=== PATIENT | female | born 1950 ===

== ENCOUNTER → 2020-03-25 13:11 | Outpatient (CLI) | payer MEDICARE, OTHER, SELFPAY ==
--- NOTE | ~2020-03-25 | MM_ITS ---
EXAMINATION: MM screening [facility] BI w zohreh HISTORY: Screening TECHNIQUE: Craniocaudal and mediolateral oblique 3-D tomosynthesis images were obtained and synthetic 2-D images were generated. CAD analysis was submitted and interpreted. COMPARISON: Comparison to multiple prior studies sequentially, with oldest reviewed study dated 05/24. BREAST PARENCHYMAL COMPOSITION: Breast composition is almost entirely fatty FINDINGS: There is no evidence of suspicious mass, calcification, or architectural distortion to sugg est malignancy in either breast. There has been no suspicious interval change. IMPRESSION: 1. No mammographic evidence of malignancy. 2. Recommend routine screening mammography in one year. BI-RADS CATEGORY 1 - NEGATIVE Reviewed, dictated and finalized at location A.
--- NOTE | ~2020-03-25 | DEXA_ITS ---
Bone Density Report Name: Sheba Adames Age: 69 Sex: Female Ethnicity: Date of : 1950 Indication: osteopenia; monitoring treatment; hysterectomy; postmenopausal Referring Provider: CLOTILDE CHOPRA Study: Bone densitometry was performed. Exam Date: March 25, 2020 Accession number: [id number] Bone Density: Region BMD T-score Z-score Classification AP Spine (L1, L4) 0.900 -1.2 0.9 Osteopenia Femoral Neck (Left) 0.644 -1.8 -0.2 Osteopenia Total Hip (Left) 0.871 -0.6 0.8 Normal Femoral Neck (Right) 0.635 -1.9 -0.2 Osteopenia Total Hip (Right) 0.745 -1.6 -0.1 Osteopenia Total Hip Mean 0.808 -1.1 0.4 Osteopenia World Health Organization criteria for BMD impression classify patients as: Normal (T-score at or above -1.0), Osteopenia (T-score between -1.0 and -2.5), or Osteoporosis (T-score at or below -2.5). 10-year Fracture Risk: FRAX not reported because: Treated for osteoporosis Previous Exams: Region Exam Age BMD T-score BMD Change BMD Change Date g/cm2 vs Baseline vs Previous AP Spine(L1, L4) 03/25/2020 69 0.900 -1.2 0.031 -0.039* 09/08/2017 67 0.939 -0.9 0.070 0.018 06/14/2012 61 0.922 -1.0 0.052 0.052 06/16/2010 59 0.869 -1.5 Total Hip(Left) 03/25/2020 69 0.871 -0.6 0.076 0.026 09/08/2017 67 0.845 -0.8 0.050 -0.010 06/14/2012 61 0.856 -0.7 0.060 0.060 06/16/2010 59 0.795 -1.2 Total Hip(Right) 03/25/2020 69 0.745 -1.6 -0.006 -0.012 09/08/2017 67 0.757 -1.5 0.005 -0.041* 06/14/2012 61 0.798 -1.2 0.047 0.047 06/16/2010 59 0.751 -1.6 *Denotes significance at 95% confidence level, LSC for AP Spine = 0.022 g/cm2, LSC for Total Hip = 0.027 g/cm2 Clinical Information Provided by Patient: Is being treated for osteoporosis Has used the following medications: HRT (i.e. estrogen/hormone therapy), Vitamin D, synthroid Has the following medical conditions: Hysterectomy Patient maximum height was 59.25 Menopause Age: 49 Drinks caffeinated beverages Onset of menses at age 13 Number of children 1 Impression: The patient has low bone mass, based on the Right Femoral Neck T-score. The BMD for the AP Spine(L1, L4) decreased, changing by -0.039 since the last DXA exam. Discussion: SIGNIFICANT BONE LOSS OBSERVED. Adherenc
== END ==
PROVIDERS: PCP Internal Medicine; Visit Provider Obstetrics & Gynecology Gynecology
DX: Z12.31 Encounter for screening mammogram for malignant neoplasm of breast (principal); M85.88 Other specified disorders of bone density and structure, other site; Z78.0 Asymptomatic menopausal state
CPT/HCPCS: 77063; 77067; 77080

== ENCOUNTER → 2021-04-22 12:46 | Outpatient (CLI) | payer MEDICARE, OTHER, SELFPAY ==
--- NOTE | ~2021-04-22 | MM_ITS ---
EXAMINATION: MM screening coy BI w zohreh HISTORY: Screening TECHNIQUE: Craniocaudal and mediolateral oblique 3-D tomosynthesis images were obtained and synthetic 2-D images were generated. CAD analysis was submitted and interpreted. COMPARISON: 03/25/2020 BREAST PARENCHYMAL COMPOSITION: The breasts are almost entirely fatty. FINDINGS: There is no evidence of suspicious mass, calcification, or architectural distortion to sugg est malignancy in either breast. There has been no suspicious interval change. IMPRESSION: 1. No mammographic evidence of malignancy. 2. Recommend routine screening mammography in one year. BI-RADS Category 1: Negative Reviewed, dictated and finalized at location A.
== END ==
PROVIDERS: PCP Internal Medicine; Visit Provider Obstetrics & Gynecology Gynecology
DX: Z12.31 Encounter for screening mammogram for malignant neoplasm of breast (principal)
CPT/HCPCS: 77063; 77067

== ENCOUNTER → 2022-04-23 10:05 | Outpatient (CLI) | payer MEDICARE, OTHER, SELFPAY ==
--- NOTE | ~2022-04-23 | MM_ITS ---
EXAMINATION: MM screening coy BI w zohreh HISTORY: Screening mammogram TECHNIQUE: Craniocaudal and mediolateral oblique 3-D tomosynthesis images were obtained and synthetic 2-D images were generated. CAD analysis was submitted and interpreted. COMPARISON: 04/22/2021, 03/25/2020 BREAST PARENCHYMAL COMPOSITION: The breasts are almost entirely fatty. FINDINGS: There is no suspicious mass, calcification, or architectural distortion to suggest malignan cy in either breast. There has been no suspicious interval change. IMPRESSION: 1. No mammographic evidence of malignancy. 2. Recommend routine screening mammography in one year. BI-RADS Category 1: Negative Reviewed, dictated and finalized at location A.
--- NOTE | ~2022-04-23 | DEXA_ITS ---
Bone Density Report Name: EVELIA KIM Age: 71 Sex: Female Ethnicity: Date of : 1950 Indication: osteopenia; monitoring treatment; parental hip fracture; height loss; hysterectomy; postmenopausal Referring Provider: CLOTILDE CHOPRA Study: Bone densitometry was performed. Exam Date: April 23, 2022 Accession number: [id number] Bone Density: Region BMD T-score Z-score Classification AP Spine (L1, L4) 0.937 -0.9 1.4 Normal Femoral Neck (Left) 0.632 -2.0 -0.1 Osteopenia Total Hip (Left) 0.854 -0.7 0.8 Normal Femoral Neck (Right) 0.604 -2.2 -0.4 Osteopenia Total Hip (Right) 0.770 -1.4 0.2 Osteopenia Total Hip Mean 0.812 -1.1 0.5 Osteopenia World Health Organization criteria for BMD impression classify patients as: Normal (T-score at or above -1.0), Osteopenia (T-score between -1.0 and -2.5), or Osteoporosis (T-score at or below -2.5). 10-year Fracture Risk: FRAX not reported because: Treated for osteoporosis Previous Exams: Region Exam Age BMD T-score BMD Change BMD Change Date g/cm2 vs Baseline vs Previous AP Spine(L1, L4) 04/23/2022 71 0.937 -0.9 0.068* 0.038 03/25/2020 69 0.900 -1.2 0.031 -0.039* 09/08/2017 67 0.939 -0.9 0.070 0.018 06/14/2012 61 0.922 -1.0 0.052 0.052 06/16/2010 59 0.869 -1.5 Total Hip(Left) 04/23/2022 71 0.854 -0.7 0.059* -0.017 03/25/2020 69 0.871 -0.6 0.076 0.026 09/08/2017 67 0.845 -0.8 0.050 -0.010 06/14/2012 61 0.856 -0.7 0.060 0.060 06/16/2010 59 0.795 -1.2 Total Hip(Right) 04/23/2022 71 0.770 -1.4 0.019 0.025 03/25/2020 69 0.745 -1.6 -0.006 -0.012 09/08/2017 67 0.757 -1.5 0.005 -0.041* 06/14/2012 61 0.798 -1.2 0.047 0.047 06/16/2010 59 0.751 -1.6 *Denotes significance at 95% confidence level, LSC for AP Spine = 0.022 g/cm2, LSC for Total Hip = 0.027 g/cm2 Clinical Information Provided by Patient: Parent has had a hip fracture Is being treated for osteoporosis Has used the following medications: Evista (i.e. raloxifene), Vitamin D, Calcium, LEVOTHYROXINE, MTV Has the following medical conditions: Hysterectomy, HX OF UTERINE CA -2012, HX OF THYROID CA -1999 WITH RADIOACTIVE IODINE TREATMENT Patient maximum height was 59.75 Menopause Age: 49 Drinks caffeinated beverages
== END ==
PROVIDERS: PCP Internal Medicine; Visit Provider Obstetrics & Gynecology Gynecology
DX: Z12.31 Encounter for screening mammogram for malignant neoplasm of breast (principal); Z78.0 Asymptomatic menopausal state; M85.852 Other specified disorders of bone density and structure, left thigh; M85.851 Other specified disorders of bone density and structure, right thigh
CPT/HCPCS: 77063; 77067; 77080

== ENCOUNTER 2022-07-10 11:44 | Emergency (ER) | payer MEDICARE, OTHER, SELFPAY ==
--- NOTE | ~2022-07-10 | XR_ITS ---
XR knee RT min 4V DATE: 07/10/2022 12:14 INDICATION: Fall 2 weeks ago. Medial knee pain. TECHNIQUE: Crosstable lateral, AP and bilateral oblique views COMPARISON: None FINDINGS: There is osteopenia. No fracture or dislocation, periosteal reaction or bone destruction. No joint effusion. Joint spaces are well preserved. Enthesopathy is superior pole patellar and quadriceps tendon insertion. IMPRESSION: Osteopenia; no other significant abnormality Reviewed, dictated and finalized at location B. CCO ROLLER
[2022-07-10 12:00] VITALS: BP 152/77; PULSE 90; RESP 20; TEMP 36.4; O2SAT 96
--- NOTE | 2022-07-10 12:44 | ED.LOWEXIN ---
HPI - Extremity Injury (Lower) General Chief Complaint: Extremity Injury, Lower Stated Complaint: Rt Knee Pain due to Fall Time Seen by Provider: 07/10/22 12:44 Source: patient Mode of arrival: ambulatory Limitations: no limitations History of Present Illness HPI Narrative: 71 y/o female presents with complaint of right knee pain for 2 weeks after injury. She states she fell while at the [facility], slipping on the wet floor. She states her left leg went out in front of her, the right leg extended behind her and the medial aspect of the right knee struck the floor. She denies bruising or swelling. She denies numbness, tingling, weakness in the extremity. She has been icing, heating, and taking ibuprofen for symptoms. She states she expected the pain to be gone by now and would like evaluation. Related Data Allergies Allergy/AdvReac Type Severity Reaction Status Date / Time No Known Allergies Allergy Unverified 08/24/17 14:44 Review of Systems Review of Systems: CONSTITUTIONAL: Denies body aches, fever, chills CARDIOVASCULAR: Denies chest pain, palpitations, or edema. RESPIRATORY: Denies cough or dyspnea. GASTROINTESTINAL: Denies abdominal pain, nausea, vomiting, or diarrhea. SKIN: Denies rash, itching, or wounds. MUSCULOSKELETAL: per HPI NEUROLOGIC: Denies headache, numbness, tingling, or weakness. All systems reviewed & are unremarkable except as noted in HPI and below PMFSH Comments At time of signature, I have reviewed and agree with nursing past medical, surgical, social and family history unless otherwise noted. Please see nursing chart for further information. There is no relevant family history pertinent to the presenting complaint Exam Narrative: GENERAL: Well-appearing, well-nourished, and in no acute distress. HEAD: Normocephalic, atraumatic. EYES: PERRLA, conjunctivae clear NECK: Supple. CHEST: Speaks in full sentences. No respiratory distress. HEART: Regular rate and rhythm. Normal and equal peripheral pulses. EXTREMITIES: Right medial knee tender with palpation, no swelling, redness, bruising. Full ROM to knee. Ambulating with steady gait. RLE has normal strength and sensation. No open wounds or obvious deformity; pulse palpable and equal bilaterally, skin warm, dry, pink. Capillary refill less than 3 seconds. SKIN: Warm, dry, no rash. Course Course Emergency Course: Patient is aware of diagnosis, understands and agrees to treatment plan. Anticipatory guidance given. Patient agrees to follow-up as directed and is aware of reasons to seek care at the emergency department. Portions of this record may have been created with voice recognition software Level of Care: Express Care Visit Vital Signs Vital signs: Vital Signs Temperature 97.5 F L 07/10/22 12:00 Pulse Rate 90 07/10/22 12:00 Respiratory Rate 20 07/10/22 12:00 Blood Pressure 152/77 H 07/10/22 12:00 Pulse Oximetry 96 07/10/22 12:00 Oxygen Delivery Room Air 07/10/22 12:00 Temperature 97.5 F L 07/10/22 12:00 Pulse Rate 90 07/10/22 12:00 Respiratory Rate 20 07/10/22 12:00 Blood Pressure 152/77 H 07/10/22 12:00 Pulse Oximetry 96 07/10/22 12:00 Oxygen Delivery Room Air 07/10/22 12:00 Reviewed MDM - Extremity Injury (Lower) MDM Narrative Medical decision making narrative: Results of x-ray reviewed with patient. Advised supportive measures and signs/symptoms to go to the ER. Pt is appropriate for outpt treatment and f/u. Differential Diagnosis Differential diagnosis: Likely acute internal derangement of knee and other (tendon/ligament injury, bursitis, arthritis, contusion, strain) Discharge Plan Discharge Clinical Impression: Acute pain of right knee Patient Disposition: Home, Self-Care Condition: Stable Instructions: Knee Pain (ED) Additional Instructions: Rest. Avoid running or excessive walking or anything that worsens the symptoms Tylenol 1000mg every 8 hours as needed,
== END 2022-07-10 13:00 | disposition home or self-care (01) ==
PROVIDERS: Emergency Provider Nurse Practitioner Family; PCP Internal Medicine
DX: M25.561 Pain in right knee (principal); W01.0XXA Fall on same level from slipping, tripping and stumbling without subsequent striking against object, initial encounter
CPT/HCPCS: 73564; 99213; G0463

== ENCOUNTER → 2023-04-29 10:16 | Outpatient (CLI) | payer MEDICARE, OTHER, SELFPAY ==
--- NOTE | ~2023-04-29 | MM_ITS ---
EXAMINATION: MM screening [facility] BI w zohreh HISTORY: Screening mammogram TECHNIQUE: Craniocaudal and mediolateral oblique 3-D tomosynthesis images were obtained and synthetic 2-D images were generated. CAD analysis was submitted and interpreted. COMPARISON: 04/23/2022, , 03/25/2020 BREAST PARENCHYMAL COMPOSITION: The breasts are almost entirely fatty. FINDINGS: There is no evidence of suspicious mass, calcification, or architectural distortion to sugg est malignancy in either breast. There has been no suspicious interval change. IMPRESSION: 1. No mammographic evidence of malignancy. 2. Recommend routine screening mammography in one year. BI-RADS Category 1: Negative Reviewed, dictated and finalized at location A.
== END ==
PROVIDERS: PCP Obstetrics & Gynecology Gynecology; Visit Provider Obstetrics & Gynecology Gynecology
DX: Z12.31 Encounter for screening mammogram for malignant neoplasm of breast (principal)
CPT/HCPCS: 77063; 77067

== ENCOUNTER 2024-06-21 12:14 | Outpatient (CLI) | payer MEDICARE, OTHER, SELFPAY ==
--- NOTE | ~2024-06-21 | MM_ITS ---
EXAMINATION: MM screening coy BI w zohreh HISTORY: Screening mammogram TECHNIQUE: Craniocaudal and mediolateral oblique 3-D tomosynthesis images were obtained and synthetic 2-D images were generated. CAD analysis was submitted and interpreted. COMPARISON: 04/29/2023, 04/23/2022, 04/22/2021 BREAST PARENCHYMAL COMPOSITION:Not Dense. The breasts are almost entirely fatty FINDINGS: No suspicious mass, calcification, or architectural distortion are identified in either lior ast to suggest malignancy. There has been no suspicious interval change. IMPRESSION: No mammographic evidence of malignancy. Recommend routine screening mammography in one year. BI-RADS Category 1: Negative Reviewed, dictated and finalized at location .
== END 2024-06-21 12:15 | disposition home or self-care (01) ==
LOC: MICIMG 12:16
PROVIDERS: PCP Physician Assistant; Visit Provider Obstetrics & Gynecology Gynecology
DX: Z12.31 Encounter for screening mammogram for malignant neoplasm of breast (principal)
CPT/HCPCS: 77063; 77067

== ENCOUNTER 2025-06-25 10:09 | Outpatient (CLI) | payer MEDICARE, OTHER, SELFPAY ==
--- NOTE | ~2025-06-25 | MM_ITS ---
EXAMINATION: MM screening coy BI w zohreh HISTORY: Screening TECHNIQUE: Craniocaudal and mediolateral oblique 3-D tomosynthesis images were obtained and synthetic 2-D images were generated. CAD analysis was submitted and interpreted. COMPARISON: Comparison to multiple prior studies sequentially, with oldest reviewed study dated , 03/25/2020 BREAST PARENCHYMAL COMPOSITION: The breasts are almost entirely fatty. FINDINGS: There is no evidence of suspicious mass, calcification, or architectural distortion to suggest malignancy in either breast. IMPRESSION: 1. No mammographic evidence of malignancy. 2. Recommend routine screening mammography in one year. BI-RADS Category 1: Negative Reviewed, dictated and finalized at location B. T HEMMER
== END 2025-06-25 10:10 | disposition home or self-care (01) ==
LOC: MICIMG 10:11
PROVIDERS: PCP Obstetrics & Gynecology Gynecology; Visit Provider Internal Medicine
DX: Z12.31 Encounter for screening mammogram for malignant neoplasm of breast (principal)
CPT/HCPCS: 77063; 77067